=== PATIENT | female | born 1980 | race Two or more races ===

== ENCOUNTER 2020-10-31 22:53 | Emergency (ER) | payer OTHER ==
[~2020-10-31] VITALS: Ht 160 cm; Wt 81.6 kg
[2020-10-31] MEDS ORDERED: HYDR-3980 PO (23:24)
[2020-10-31] MEDS ORDERED: ONDANSETRON ODT 4 MG TAB.RAPDIS SL ONE (23:30)
[2020-10-31] MEDS ORDERED: HYDROCODONE/APAP 10-325 MG TABLET PO ONE (23:30)
--- NOTE | 2020-10-31 23:30 | NUR ---
Crutches dispensed. Pt instructed on proper use of crutches. Patient able to demonstrate correct use of crutches.
[2020-10-31] MEDS ORDERED: HYDROCODONE/APAP 10-325 MG TABLET ONE (23:34)
[2020-10-31] MEDS ORDERED: ONDANSETRON ODT 4 MG TAB.RAPDIS ONE (23:34)
[2020-10-31 23:44] VITALS: BP 108/67
--- NOTE | 2020-10-31 23:45 | NUR ---
Patient discharged to home in stable condition with family taking patient home. Written and verbal after care instructions given. Patient verbalizes understanding of instructions. Stressed follow up or return to ER for worsening s/s.
== END 2020-10-31 23:45 | disposition home or self-care (01) ==
LOC: ER 22:56
DX: S83.91XA Sprain of unspecified site of right knee, initial encounter (principal); X50.9XXA Other and unspecified overexertion or strenuous movements or postures, initial encounter; Y93.72 Activity, wrestling; Y92.89 Other specified places as the place of occurrence of the external cause; Z86.69 Personal history of other diseases of the nervous system and sense organs
CPT/HCPCS: A4663; Q0162

== ENCOUNTER 2020-12-08 19:25 | Emergency (ER) | payer OTHER ==
[~2020-12-08] VITALS: Ht 160 cm; Wt 81.6 kg
[~2020-12-08 19:25] MED LIST: HYDR-3980 PO
--- NOTE | 2020-12-08 20:00 | NUR ---
Dr. Meade at bedside for MSE.
--- NOTE | 2020-12-08 20:06 | NUR ---
Pt provided urine sample, sent to lab.
[2020-12-08] MEDS ORDERED: HYDR-3980 PO (20:11)
[2020-12-08] MEDS ORDERED: NALO4SPR INH (20:11)
[2020-12-08 20:12] LABS: *URINE HCG, QUAL NEGATIVE (NEGATIVE)
[2020-12-08] MEDS ORDERED: HYDROCODONE/APAP 5-325MG TABLET PO ONE (20:15)
--- NOTE | 2020-12-08 20:18 | NUR ---
Xray at bedside.
[2020-12-08] MEDS ORDERED: HYDROCODONE/APAP 5-325MG TABLET ONE (20:23)
--- NOTE | 2020-12-08 21:30 | NUR ---
Patient discharged to home in stable condition. Written and verbal after care instructions given. Patient verbalizes understanding of instructions. Stressed follow up or return to ER for worsening s/s. Patient out of ER with crutches, gait training provided, no falls noted, VSS, no acute signs of distress, all belongings taken, provided with copies of Xray results, instructed not to drive, patient in waiting room waiting for ride home.
[2020-12-08 21:57] VITALS: BP 110/75
== END 2020-12-08 21:57 | disposition home or self-care (01) ==
LOC: ER 19:25
DX: S83.92XA Sprain of unspecified site of left knee, initial encounter (principal); W18.49XA Other slipping, tripping and stumbling without falling, initial encounter; Y93.01 Activity, walking, marching and hiking; Y92.89 Other specified places as the place of occurrence of the external cause
CPT/HCPCS: 84703; A4663